=== PATIENT | male | born 1990 | race Two or more races ===

== ENCOUNTER 2017-12-28 15:04 | Emergency (ER) | payer OTHER ==
[~2017-12-28] VITALS: Ht 167.6 cm; Wt 72.6 kg
[~2017-12-28 15:04] MED LIST: BACTRIM DS TAB1 EAC1 ORAL; IBUPROFEN600 MG ORAL; IBUPROFEN600 MG PO; KEFLEX500 MG ORAL; NKM; VIBRAMYCIN100 MG ORAL
[2017-12-28] MEDS ORDERED: Bacitracin Oint UD TOPIC ONE (15:30)
[2017-12-28] MEDS ORDERED: Tetanus/Diptheria/Pertussis Vaccine 0.5ml Syr IM ONE (15:30)
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
[2017-12-28 16:34] VITALS: BP 155/90
[2017-12-28 16:35] VITALS: BP 155/90
[2017-12-28] MEDS ORDERED: BACITRACIN15 GM TOPIC (16:35)
== END 2017-12-28 16:46 ==
LOC: EDBD 15:04 → EMR 15:48
DX: S50.812A Abrasion of left forearm, initial encounter (principal); S50.811A Abrasion of right forearm, initial encounter; S00.91XA Abrasion of unspecified part of head, initial encounter; V43.52XA Car driver injured in collision with other type car in traffic accident, initial encounter; Y92.480 Sidewalk as the place of occurrence of the external cause; Z23 Encounter for immunization; F12.90 Cannabis use, unspecified, uncomplicated
CPT/HCPCS: 90471; 90715; 99283

== ENCOUNTER 2019-04-24 03:58 | Emergency (ER) | payer OTHER ==
[~2019-04-24] VITALS: Ht 162.6 cm; Wt 108.9 kg
[~2019-04-24 03:58] MED LIST changes: +BACITRACIN15 GM TOPIC
[2019-04-24 04:08] VITALS: BP 155/84
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
[2019-04-24 04:32] VITALS: BP 144/76
== END 2019-04-24 04:31 ==
LOC: EDBD 03:58 → EMR 04:06
DX: R55 Syncope and collapse (principal)
CPT/HCPCS: 99283